=== PATIENT | female | born 1955 | race Caucasian/White ===

== ENCOUNTER → 2018-06-14 11:04 | Outpatient (CLI) | payer OTHER, SELFPAY ==
--- NOTE | 2018-06-13 15:30 | CER_PTH ---
PATIENT: FAITH CAPUTO LOC: [facility] U#:[id number] AGE/SX: 70/F ROOM: RE06/14/[address]: Dr. Anthony Moreira MD : 1955 BED: DIS: SPEC #: [id number] RECD: 06/14/18 10:45 STATUS: FLOR JAMARCUS #: [id number] EDDA: 06/13/18 15:[address]: Anthony Moreira DEPT: SURGICAL PATHOLOGY RECD BY: Elliot Cowan Tissues: Uterine cervix, NOS Procedures: Surgery Specimen Level IV HEADER OPERATION: Cervical polyp removed PRE-OP DIAGNOSIS: Cervical polyp TISSUE SUBMITTED: Cervical polyp MICROSCOPIC DIAGNOSIS Cervical polyp, biopsy: Benign endocervical polyp, inflamed. AM:holly 06/15/18 MICROSCOPIC DESCRIPTION Slides are reviewed. GROSS DESCRIPTION Received is one container labeled with the patient's name and not further designated. The specimen consists of multiple irregular and somewhat mucoid fragments of light to dark salazar soft tissue that in aggregate measure 2.5 x 1 x 0.1 cm. The specimen is totally submitted in one cassette. / AM:holly 06/14/18 TC:1 CPT: 58463
--- OUTSIDE RECORDS SUMMARY | 2018-08-16 09:00 | XMS RPT_ITS ---
:1955 Author Organization [facility] Care Team Providers Name Role Phone KALYAN HUANG Admitting Unavailable KALYAN HUANG Attending Unavailable KALYAN HUANG Primary Care Unavailable KALYAN HUANG Admitting Unavailable KALYAN HUANG Attending Unavailable KALYAN HUANG Primary Care Unavailable ANDERSON BALDWIN Referring Unavailable ANDERSON BALDWIN Consulting Unavailable PROVIDER, UNKNOWN Consulting Unavailable KALYAN HUANG Admitting Unavailable KALYAN HUANG Attending Unavailable KALYAN HUANG Primary Care Unavailable ANDERSON BALDWIN Admitting Unavailable ANDERSON BALDWIN Attending Unavailable ANDERSON BALDWIN Primary Care Unavailable ANDERSON BALDWIN Consulting Unavailable PROVIDER, UNKNOWN Consulting Unavailable ANDERSON BALDWIN Admitting Unavailable ANDERSON BALDWIN Attending Unavailable ANDERSON BALDWIN Primary Care Unavailable ANDERSON BALDWIN Consulting Unavailable PROVIDER, UNKNOWN Consulting Unavailable Anthony Moreira Attending Unavailable Anthony Moreira Referring Unavailable PROBLEMS PROBLEMS DATE TYPE CONDITION / ATTENDING STATUS SOURCE CODE 11/22/2017 Principle Encounter for KALYAN HUANG Active Vish Nolen Diagnosis screening for T [facility] neoplasm of Repository colon / Z1211(ICD-10) PROCEDURES PROCEDURES No Procedure Records FoundRESULTS RESULTS CERVICAL Observed: 06/13/2018 Status: F Source: [facility] 3:30 PM [facility] Patient: FAITH CAPUTO : 1955 (63/) Acct Num: [id number] Phys: Lillie ORO,Anthony Unit Num: [id number] Loc: LABSPEC Specimen: [id number] Received: 06/14/18 - 1045 Spec Type: CERV TISSUES 1 TISSUES: Uterine cervix, NOS GROSS DESCRIPTION Received is one container labeled with the patient's name and not further designated. The specimen consists of multiple irregular and somewhat mucoid fragments of light to dark salazar soft tissue that in aggregate measure 2.5 x 1 x 0.1 cm. The specimen is totally submitted in one cassette. / AM:holly 06/14/18 TC:1 CPT: 65954 HEADER OPERATION: Cervical polyp removed PRE-OP DIAGNOSIS: Cervical polyp TISSUE SUBMITTED: Cervical polyp MICROSCOPIC DESCRIPTION Slides are reviewed. MICROSCOPIC DIAGNOSIS Cervical polyp, biopsy: Benign endocervical polyp, inflamed. AM:holly 06/15/18 Signed Andrae Panchal DO 06/15/18 <signature on file> Performed By: #### PCER #### [facility] [address] [place], [place] [address], [place], [address] CT ABDOMEN/PELVIS WO Observed: 05/17/2018 Status: F Source: VISH NOLEN 9:05 AM [place] [address] Patient: FAITH CAPUTO Phone#: : 1955 Age: 63 Gender: F Pt. Type: Out Account: [id number] Location: Ordering: [facility] Exam Date: 05/17/2018/8:34 Family Phys: Charge Code: [id number] Physician: Canyon Order #: [id number] DLP Dose#: PROCEDURE: CT ABDOMEN/PELVIS WITHOUT CONTRAST COMPARISON: None. INDICATIONS: Mass TECHNIQUE: CT images were created without intravenous contrast and with oral contrast material only. All CT scans at this facility use dose modulation, iterative reconstruction, and/or weight based dosing when appropriate to reduce radiation dose to as low as reasonably achievable. IV CONTRAST: No IV contrast used,0ml TOTAL DOSE: 13.0 CTDIvol(mGy) FINDINGS: LIVER: Normal. No enlargement, atrophy, abnormal density, or significant focal lesion. BILIARY: Normal. No visible dilatation or calcification. PANCREAS: Normal. No lesion, fluid collection, ductal dilatation, or atrophy. SPLEEN: Normal. No enlargement or focal lesion. KIDNEYS: Normal. No mass, obstruction, or calcification. ADRENALS: Normal. No mass or enlargement. AORTA/VASCULAR: Normal. No aneurysm. RETROPERITONEUM: Normal. No mass or adenopathy. BOWEL/MESENTERY: There is moderate stool retention in the proximal colon. A small hiatal hernia is present. ABDOMINAL WALL: A left lower abdominal wall defect is present to the right of midline with herniation of fat. The hernia sac measures 10.8 x 4.6 x 10.7 cm. URINARY BLADDER: Normal. No visible focal wall thickening, lesion, or calculus. PELVIC NODES: Normal. No adenopathy. Continued Report - Page 2 of 2 Patient: FAITH CAPUTO Phone#: : 1955 Age: 63 Gender: F Pt. Type: Out Account: [id number] Location: Ordering: [facility] Exam Date: 05/17/2018/8:34 Family Phys: Charge Code: [id number] Physician: Canyon Order #: [id number] DLP Dose#: PELVIC ORGANS: Normal. No visible mass. Pelvic organs appropriate for patient age. BONES: There is levoscoliosis of the lumbar spine with associated degenerative disc disease. LUNG BASES: There are dependent changes. There is linear atelectasis in the lung bases. OTHER: Negative. CONCLUSION: 1. Lower abdominal wall defect is present with herniation of fat. Dictated by: Dian Saavedra MD on 05/17/2018 at 13:11 Approved by: Kathrin Quiroga MD on 05/17/2018 at 16:25 US PELVIC Observed: 05/04/2018 Status: F Source: [facility] 5:44 PM [place] [address] Patient: FAITH CAPUTO Phone#: : 1955 Age: 63 Gender: F Pt. Type: Out Account: [id number] [facility]: [facility] Exam Date: 05/04/2018/16:54 Family Phys: Charge Code: [id number] Physician: Canyon Order #: [id number] DLP Dose#: PROCEDURE: PELVIC ULTRASOUND, TRANSABDOMINAL ENDOVAGINAL COMPARISON: None. INDICATIONS: Pelvic pain TECHNIQUE: Pelvic ultrasound using transabdominal and endovaginal technique. FINDINGS: UTERUS: Size is 8.6 x 3.4 x 5.9 cm. In close approximation to the endometrium at the lower uterine segment is a well marginated ovoid focus measuring 14 x 11 x 13 mm and may represent a subserosal fibroid polypoid lesion. Endometrial thickness is 2.1 mm. ADNEXAE: Normal bilateral appearance with no significant masses. Right ovary is 2.3 x 1.9 x 2.6 cm. Left ovary is 2.9 x 1.7 x 2.2 cm. CUL-DE-SAC: Normal. No fluid or mass. OTHER: In the area of interest in the right lower abdomen there is suggestion of muscular defect with herniation of mesenteric fat. There is mild associated vascularity. Exam is somewhat limited by patient body habitus. Further evaluation by CT is recommended. CONCLUSION: 1. Well marginated 14 mm focus is present in close approximation to the canal in the lower uterine segment and may represent a subserosal fibroid versus polypoid lesion. 2. Probable right abdominal hernia at the area of interest with herniation of mesenteric fat. Exam is somewhat limited by patient body habitus. CT is recommended. Dictated by: Kathrin Quiroga MD on 05/04/2018 at 18:09 Approved by: Kathrin Quiroga MD on 05/04/2018 at 18:09 US PELVIC ENDO Observed: 05/04/2018 Status: F Source: VISH NOLEN [facility] 5:[address] [address] Patient: FAITH CAPUTO Phone#: : 1955 Age: 63 Gender: F Pt. Type: Out Account: [id number] Location: Ordering: [facility] Exam Date: 05/04/2018/16:54 Family Phys: Charge Code: [id number] Physician: Canyon Order #: [id number] DLP Dose#: PROCEDURE: PELVIC ULTRASOUND, TRANSABDOMINAL ENDOVAGINAL COMPARISON: None. INDICATIONS: Pelvic pain TECHNIQUE: Pelvic ultrasound using transabdominal and endovaginal technique. FINDINGS: UTERUS: Size is 8.6 x 3.4 x 5.9 cm. In close approximation to the endometrium at the lower uterine segment is a well marginated ovoid focus measuring 14 x 11 x 13 mm and may represent a subserosal fibroid polypoid lesion. Endometrial thickness is 2.1 mm. ADNEXAE: Normal bilateral appearance with no significant masses. Right ovary is 2.3 x 1.9 x 2.6 cm. Left ovary is 2.9 x 1.7 x 2.2 cm. CUL-DE-SAC: Normal. No fluid or mass. OTHER: In the area of interest in the right lower abdomen there is suggestion of muscular defect with herniation of mesenteric fat. There is mild associated vascularity. Exam is somewhat limited by patient body habitus. Further evaluation by CT is recommended. CONCLUSION: 1. Well marginated 14 mm focus is present in close approximation to the canal in the lower uterine segment and may represent a subserosal fibroid versus polypoid lesion. 2. Probable right abdominal hernia at the area of interest with herniation of mesenteric fat. Exam is somewhat limited by patient body habitus. CT is recommended. Dictated by: Kathrin Quiroga MD on 05/04/2018 at 18:09 Approved by: Kathrin Quiroga MD on 05/04/2018 at 18:09 OPERATIVE PROCEDURES Observed: 12/26/2017 Status: F Source: [facility]ISH [facility]OLEN 11:28 AM [facility] NAME ACCOUNT SEX AGE ADMIT DISCHARGE PT MED. RECORD# NUMBER DATE DATE TYPE FAITH CAPUTO [id number] F 62 12/08/17 12/08/17 2 C [id number] ROOM: [facility] DATE OF : 1955 DICTATING PHYSICIAN: Kalyan Huang Page 1 of 3 FAITH CAPUTO Operative Report DATE OF SURGERY: December 08, 2017 SURGEON: Dr. 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 (2) Positive fecal occult blood testing. POSTOPERATIVE DIAGNOSIS: (1) Internal and external hemorrhoids, descending colon polyp x2, rectal polyp x1. OPERATION PERFORMED: (1) Colonoscopy. (2) Cold grasp polypectomy x2. (3) Snare polypectomy x1. (4) Bowel tattoo in rectum. COMPLICATIONS: None. ESTIMATED BLOOD LOSS: Minimal DRAINS: None. SPECIMENS: Descending colon polyp x2, rectal polyp x1. SIGNIFICANT FINDINGS: Colon prep was good. The ascending colon polyp was small, sessile, and completely grossly excised. Rectal polyp was moderate sized, broad-based, and entirely excised. DESCRIPTION OF OPERATION: Following initiation of MAC anesthesia the patient was placed in a left lateral decubitus position. A digital rectal examination was performed. On digital rectal examination, the patient was appreciated to have external hemorrhoids with associated skin tags. There was no evidence of hemorrhoids, bleeding, thrombosis or infection. No fissures were appreciated either. The flexible colonoscope was introduced into the anus and advanced to the ileocecal junction under direct visualization. The scope was slowly withdrawn and colonic mucosa was inspected meticulously. It was noted that the bowel prep was good. There were no abnormalities appreciated within the cecum, ascending colon or transverse colon. In the descending colon, she was found to have two small sessile polyps that were completely grossly excised using a cold grasp polypectomy forceps. There were n abnormalities appreciated within the sigmoid colon. The scope was pulled into the rectum, approximately 10 cm from the anal verge. The patient had a moderate-sized sessile polyp. The polyp was grossly entirely excised using a hot snare polypectomy Page 2 of 3 FAITH CAPUTO Operative Report device. The remnants were retrieved using a suction trap. Given the broad-based nature of the polyp and the size, a bowel tattoo was placed at the distal margin of the polypectomy site. The scope was then retroflexed. On retroflexion, the patient was also appreciated to have internal hemorrhoids. There was no evidence of internal hemorrhoid, bleeding, thrombosis, infection or ulceration. The scope was then straightened, the colon desufflated and the scope removed. The patient was then awakened and taken to the PACU in good and stable condition. Dictated By: Kalyan Huang MD 12/08/17 11:28 JOB #: [id number] Transcribed By: gurmeet 12/09/17 07:17 Electronically signed by: E-SIGN DR. HUANG 12/26/17 11:28 Page 3 of 3 FAITH CAPUTO Operative Report ALLERGIES ALLERGIES DATE TYPE / CODE NAME / CODE REACTION SEVERITY SOURCE Miscellaneous No Known Drug Moderate Vish Pomerene Allergy/[id number](S Allergies ([facility]OM[facility]) Modifier) Hospital (Qualifier Repository Value) ENCOUNTERS ENCOUNTERS ADMIT/DISCHARGE ACCOUNT ADMITTING ENCOUNTER LOCATION SOURCE NUMBER CLASS 06/14/2018 [id number] Ambulatory Nancy Cruz [address] [place] [address] ing:LABSPEC Repository 05/17/2018/ [id number] [facility] Vish Pomerene [address] [place] [address] Repository 05/04/2018/ [id number] [facility] Vish Pomerene [address] [place] [address] Repository 12/08/2017/ [id number] [facility] BuildinR Vish[address] oom: [address] Repository 11/22/2017/ [id number] [facility] Vish [facility] Repository 11/22/2017/ [id number] [facility] [address] [place] [address] Repository PAYERS PAYERS ENCOUNTER GUARANTOR PAYER SUBSCRIBER SOURCE 06/14/2018 BERNABE CAPUTODOB: Nancy [id number] Insurance:[facility] [id number] [address] Number: [facility] [address]Gne: [id number] Repository Date:2018-06-14 () 06/14/2018 Secondary NOT GIVENUNK Nancy Insurance:SELF PAY [facility] Number: Effective Repository Date:2018-06-14 05/17/2018 FAITH Hussein Primary BERNABE R Vish Nolen MILLERDOB: Insurance:LHS/MEDCOST MILLERDOB: [facility] SOLUTIONS [facility] [id number] Number: 0 TR Repository [address] [place] [address], [id number] [address] [place] [address] [id number]: Date:Plan Name:[facility] [phone] [address] [place] [address] () [id number]: 05/04/2018 FAITH Hussein Primary BERNABE R Vish Nolen MILLERDOB: Insurance:LHS/MEDCOST MILLERDOB: [facility] [id number] SOLUTIONS [facility] [id number] [facility] [address] Number: 0 TR Repository [address] [place] [address], [id number] [address] [place] [address] [id number]: Date:Plan Name:[facility] [id number] [address] [place] [address] () [id number]:
== END ==
PROVIDERS: Referring Provider Obstetrics & Gynecology; Visit Provider Obstetrics & Gynecology
DX: N84.1 Polyp of cervix uteri (principal)
CPT/HCPCS: 88305